=== PATIENT | female | born 1970 | race Caucasian/White ===

== ENCOUNTER 2021-09-30 14:31 | Emergency (ER) | payer OTHER, SELFPAY ==
[2021-09-30 14:32] VITALS: BP 121/60; PULSE 73; RESP 16; TEMP 36.6; O2SAT 99; BMI 20.9
--- NOTE | 2021-09-30 15:06 | ED.VIS.FALL ---
HPI HPI - Fall History of Present Illness Chief Complaint: Fall Detail of Chief Complaint: Fall with laceration to left forehead Informant: patient Narrative Narrative: Patient presents to the emergency department with a fall that occurred prior to arrival in the emergency department. Patient tripped over a rubber mat and fell against a window with her head. No loss of consciousness. Patient unsure of her last tetanus shot. She has been ambulatory. She denies neck pain. She denies chest pain or abdominal pain. Patient tells me that the window that she struck with her head did not break. Tetanus Immunization: Unknown PFSH PFSH Medical History no medical history Allergy/AdvReac Type Severity Reaction Status Date / Time No Known Allergies Allergy Verified 09/30/21 14:36 Social History Smoking Status: Never smoker ROS ROS ED Review of Systems ROS Unobtainable: other Constitutional Constitutional ED: Reports lethargy; Denies chills, fever(s), sweats or weight loss Eyes Eyes: Denies blurry vision, change in vision or diplopia ENT ENT ED: Denies rhinorrhea or sore throat Cardiovascular Cardiovascular: Reports chest pain and racing heartbeat; Denies orthopnea Respiratory/Chest Respiratory/Chest: Reports dyspnea and dyspnea on exertion; Denies cough, orthopnea or sputum Gastrointestinal Gastrointestinal: Denies abdominal pain, diarrhea, nausea or vomiting Genitourinary Genitourinary ED: Denies dysuria, hematuria or urinary frequency Musculoskeletal Musculoskeletal: Denies arthralgias, back pain, myalgias or neck pain Integumentary Reports other Details: Laceration left forehead Abrasion right hand ; Denies abscess, Abrasions or rash Neurologic Neurologic: Denies headache(s) or weakness Psychiatric Psychiatric: Denies anxiety, depression or suicidal thoughts Endocrine Endocrinology: Denies polydipsia, polyphagia or polyuria Hematologic/Lymphatic Hematologic/Lymphatic: Denies easy bleeding, easy bruising or lymphadenopathy Allergic/Immunologic Allergic/Immunologic ED: Denies mouth swelling, tongue swelling or urticaria EXAM Physical Exam Const Vital Signs: 09/30/21 14:32 09/30/21 14:36 Temperature 97.9 F Temperature Source Temporal Pulse Rate 73 Respiratory Rate 16 Respiratory Effort Normal Non-Labored Respiratory Depth Normal Respiratory Pattern Normal Blood Pressure 121/60 H Blood Pressure Mean 80 Pulse Ox 99 Oxygen Delivery Method Room Air Room Air Positive well nourished and well developed General Appearance ED: well developed and NAD HEENT Reports TM's clear and moist mucous membranes HEENT Narrative: Patient has a 3 cm laceration above the left eyebrow that is well approximated. No active bleeding. No bony step-offs. normocephalic and atraumatic; Negative for trauma or tenderness Tympanic Membrane ED: Yes TM's clear Eyes PERRL and EOMs intact bilaterally General Eye ED: Negative for pale conjunctiva or scleral icterus Neck no lymphadenopathy, supple and no JVD General: Negative for tenderness Chest Wall inspection of chest normal and palpation of chest normal Chest: Negative for tenderness Resp normal respiratory effort and clear to auscultation bilaterally Effort and Inspection: Negative for respiratory distress or pain with movement Auscultation: Negative for rhonchi, wheezes or diminished lung sounds Cardio regular rate, regular rhythm, S1 normal heart sound, S2 normal heart sound and no murmurs Peripheral Pulses: pulses 2+ throughout GI normal to inspection, nondistended, normoactive bowel sounds, soft to palpation, non-tender, non-distended and no masses Back/Spine no CVA tenderness and no thoracic nor lumbar tenderness Extremity normal to inspection General Extremety ED: Negative for edema General Extremity: Negative for edema Neuro oriented x3, CN's II-XII intact bilaterally, no sensory deficits noted and gait normal Sensorium / Orientation: awake, alert, oriented to person, oriented to place and oriented to time Motor Exam: strength 5/5 throughout and strength abnormal Psych mental status grossly normal Skin no rashes or lesions noted and no wounds Skin Narrative: Patient has superficial abrasion to the hypothenar eminence of the right palm. Patient also has a superficial abrasion to the dorsum of the mid right foot. No bony tenderness on exam. MDM MDM MDM Narrative Medical decision making narrative: Patient had a 3 cm laceration above the left eyebrow that was repaired in the department. I do not feel any type of imaging is indicated. Patient received an Adacel tetanus booster. Patient will follow-up with her primary care physician 5 to 7 days for suture removal. She is advised to return if increasing pain, redness, swelling, purulent drainage, or condition worsen anyway. Procedures Lacerations Left forehead laceration: Length: 1.18 in Depth: Sub Q Shape: Linear Prep: Sterile Conditions and Shure-Clens Laceration repair: Irrigated, Lidocaine with epi and Local Irrigated (ml): 50 Number of Sutures/Katiuska: 7 Suture Information: Ethilon, Simple and 6-0 Discharge Plan Triage Chief Complaint: Fall ED Provider: Barrera Davis Dx/Rx/DC Orders Clinical Impression: Forehead laceration, Abrasion Instructions: ED Abrasion, ED Laceration: All Closures Primary Care Provider: [facility] ,Out of Referrals: [facility] Doctor,Out of [Primary Care Provider] - 5 Days for suture removal Disposition Disposition: Home, Self Care
[2021-09-30] MEDS: Diphth,Pertuss(Acell),Tet Vac 0.5 ML Vial IM (15:13)
[2021-09-30] MEDS: Lidocaine/Epi/Tetracaine 50 ML 1 APPLIC TOPICAL (15:22)
[2021-09-30] MEDS: Lidocaine 1% /Epi 1:100 (20ml) 20 ML Vial 6 ML INFILT (16:13)
== END 2021-09-30 16:25 | disposition home or self-care (01) ==
LOC: ED 16:19
PROVIDERS: Emergency Provider Emergency Medicine; Visit Provider Emergency Medicine
DX: S01.81XA Laceration without foreign body of other part of head, initial encounter (principal); W18.09XA Striking against other object with subsequent fall, initial encounter; Z23 Encounter for immunization
CPT/HCPCS: 12013; 90471; 90715; 99284